=== PATIENT | female | born 1935 | race Caucasian/White ===

== ENCOUNTER 2017-12-30 11:18 | Emergency (ER) | payer MEDICARE ==
--- NOTE | 2017-12-30 12:28 | RAD ---
HISTORY: dizzy, fell, headache COMPARISONS: None TECHNIQUE: Multiple contiguous axial CT scans were obtained of the head without intravenous contrast. FINDINGS: HEMORRHAGE/INFARCT: There is no hemorrhage or acute infarct. MASSES/SHIFT: There is no mass or shift. EXTRA-AXIAL SPACES: There are no extra-axial fluid collections. There is a rounded high attenuation lesion of the sella and suprasellar cistern measuring 0.9 cm in diameter centered to the right of midline SULCI AND VENTRICLES: The sulci and ventricles are normal in size and position for the patient's stated age. CEREBRUM: There are no focal parenchymal abnormalities. BRAINSTEM: There are no focal parenchymal abnormalities. CEREBELLUM: There are no focal parenchymal abnormalities. VESSELS: The vessels are grossly normal. PARANASAL SINUSES: The paranasal sinuses are clear. ORBITS: The orbits are unremarkable. BONES AND SOFT TISSUE: No bone or soft tissue abnormalities are noted. OTHER: None IMPRESSION: 1. 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 THE DIFFERENTIAL INCLUDES MACROADENOMA VERSUS SELLA MENINGIOMA. CONSIDER FURTHER EVALUATION WITH CONTRAST-ENHANCED PITUITARY PROTOCOL MRI OF THE BRAIN IN THE NONACUTE SETTING. 2. NO ACUTE INTRACRANIAL PATHOLOGY.
--- NOTE | 2017-12-30 12:33 | ED ---
Dizziness - HPI Summary HPI Summary: Pt is an 82 y/o female who presents to the ED c/o dizziness and head pain s/p fall. As per son Quinn, she got up to go to the bathroom 2 nights ago, 12/29/17 and 12:00 AM, and fell against her closet due to dizziness. Since then, she has been c/o dizziness, diaphoresis, mild nausea, dehydration, and tailbone and head pain. Pain is rated as an 9/10 in severity. She denies any neck pain, CP, or headache. Pt is not on blood thinners. She also states she has had throat pain for a while, and has seen the ENT for this symptom. Home Medications Medication Instructions Recorded Confirmed Type Atorvastatin* [Lipitor 10 MG*] 10 mg PO 1700 09/14/13 11/21/17 History Omeprazole CAP* [Prilosec CAP* 20 20 mg PO DAILY 09/14/13 11/21/17 History MG] Ascorbic Acid TAB* [Vitamin C 500 mg PO DAILY 11/21/17 History TAB*] Cholecalciferol TAB* [Vitamin D 2,000 units PO DAILY 11/21/17 History TAB*] Cranberry PO DAILY 11/21/17 History Fluticasone Propionate [Flovent 2 nasal.spr BOTH NARES DAILY 11/21/17 History Diskus] Levothyroxine Sodium 50 mcg PO DAILY 11/21/17 History - History Of Current Complaint Chief Complaint: EDDizziness Stated Complaint: DIZZY/SWEATING Time Seen by Provider: 12/30/17 11:30 Hx Obtained From: Patient, Family/Mid Level Project Manager - Son Onset/Duration: Suddenly Timing: Constant Character: Dizzy Aggravating Factor(s): Other - Fall 2 days ago Alleviating Factor(s): Nothing Associated Signs And Symptoms: Positive: Nausea, Diaphoresis. Negative: Chest Pain, SOB - Allergies/Home Medications Allergies/Adverse Reactions: Allergies Allergy/AdvReac Type Severity Reaction Status Date / Time doxycycline Allergy Unknown Verified 11/21/17 11:58 Reaction Details Penicillins Allergy Unknown Verified 11/21/17 11:58 Reaction Details Sulfa (Sulfonamide Allergy Unknown Verified 11/21/17 11:58 Antibiotics) Reaction Details Home Medications: Home Medications Levothyroxine Sodium 50 mg PO DAILY 12/30/17 [History Confirmed 12/30/17] PMH/Surg Hx/FS Hx/Imm Hx Endocrine/Hematology History: Denies: Hx Diabetes, Hx Thyroid Disease Cardiovascular History: Denies: Hx Hypertension Respiratory History: Denies: Hx Asthma, Hx Chronic Obstructive Pulmonary Disease (COPD) GI History: Denies: Hx Ulcer - Cancer History Hx Chemotherapy: No Hx Radiation Therapy: No - Surgical History Surgery Procedure, Year, and Place: 1970, Hysterectomy, partial thyroidectomy Infectious Disease History: No Infectious Disease History: Denies: Hx Clostridium Difficile, Hx Hepatitis, Hx Human Immunodeficiency Virus (HIV), Hx of Known/Suspected MRSA, Hx Shingles, Hx Tuberculosis, Hx Known/ Suspected VRE, Hx Known/Suspected VRSA, History Other Infectious Disease, Traveled Outside the [place] in Last 30 Days - Family History Known Family History: Positive: Cardiac Disease, Diabetes - Mother, Other - Adrenal gland tumor (son), cancer (father), brain aneurysm (sister) - Social History Alcohol Use: Rare Hx Substance Use: No Substance Use Type: Reports: None Hx Tobacco Use: Yes Smoking Status (MU): Former Smoker Review of Systems Positive: Skin Diaphoresis, Other - Dehydrated Negative: Chest Pain Positive: Nausea Positive: Myalgia - Tailbone, back of head Neurological: Other - Dizziness, NEGATIVE: neck pain Negative: Headache All Other Systems Reviewed And Are Negative: Yes Physical Exam - Summary Physical Exam Summary: Appearance: Well-appearing, moderate pain distress, well-nourished Skin: Warm, color reflects adequate perfusion, dry Head: Normal Head/Face inspection, atraumatic Eyes: Conjunctiva clear ENT: Normal inspection Neck: Supple, no nodes, no JVD, discomfort right anterior aspect of neck Respiratory: Lungs clear, normal breath sounds, no respiratory distress Cardio: RRR, No murmur, pulses normal, brisk capillary refill Abdomen: Soft, nontender Bowel sounds: Present Musculoskeletal: Strength Intact/ROM intact, no calf tenderness, no edema, sacrum and coccyx tender on palpation Psychological: Normal Neuro: A&O x3, CN II-XII intact, motor function 5/5, sensation intact, cerebellar normal GCS: 15 Rectal: ext js developer in room, normal Triage Information Reviewed: Yes Vital Signs On Initial Exam: Initial Vitals Temp Pulse Resp BP Pulse Ox 99 F 73 16 138/72 98 12/30/17 11:20 12/30/17 11:20 12/30/17 11:20 12/30/17 11:20 12/30/17 11:20 Vital Signs Reviewed: Yes Diagnostics - Vital Signs Vital Signs Temp Pulse Resp BP Pulse Ox 12/30/17 11:20 99 F 73 16 138/72 98 - Laboratory Result Diagrams: 12/30/17 13:16 12/30/17 13:16 Lab Statement: Any lab studies that have been ordered have been reviewed, and results considered in the medical decision making process. - Radiology CXR Xray Interpretation: No Acute Changes - NO ACTIVE CARDIOPULMONARY DISEASE. ED physician reviewed radiology report. Radiology Interpretation Completed By: Radiologist Sacrum and Coccyx XR Xray Interpretation: Positive (See Comments) - 1. LIMITED STUDY. 2. NO ACUTE OSSEOUS INJURY OF THE SACRUM AND COCCYX. PLAIN FILMS ARE RELATIVELY INSENSITIVE TO NONDISPLACED FRACTURES OF THE SACRUM AND COCCYX. IF THERE IS PERSISTENT CLINICAL CONCERN FOR SACROCOCCYGEAL OSSEOUS PATHOLOGY, BONE SCANNING MAY BE MORE SENSITIVE. ED physician reviewed radiology report. Radiology Interpretation Completed By: Radiologist - CT Brain CT CT Interpretation: Positive (See Comments) - 1. 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 THE DIFFERENTIAL INCLUDES MACROADENOMA VERSUS SELLA MENINGIOMA. CONSIDER FURTHER EVALUATION WITH CONTRAST-ENHANCED PITUITARY PROTOCOL MRI OF THE BRAIN IN THE NONACUTE SETTING. 2. NO ACUTE INTRACRANIAL PATHOLOGY. ED physician reviewed radiology report. CT Interpretation Completed By: Radiologist - EKG 11:27 Cardiac Rate: NL - 71 bpm EKG Rhythm: Sinus Rhythm ST Segment: Non-Specific Ectopy: PVCs EKG Interpretation: An EKG at 11:27 reveals nml AV/IV CT, nml QTc, and LAD (-44) Re-Evaluation - Re-Evaluation First Eval Re-Evaluation Time: 14:00 Change: Worse Comment: Pt now c/o headache. Second Eval Re-Evaluation Time: 15:39 Change: Improved Comment: Pt wants to go home. Third Eval Re-Evaluation Time: 15:50 Change: Improved Comment: Discussed discharge with patient. Pt still dizzy but improved. BP 192/ 86. Dizzy Course/Dx - Course Course Of Treatment: At 13:30 Dr. Giron said to consult with neurosurgery about the sellar and suprasellar mass. At 13:[address] Melo, pt does not need admission for incidental finding alone. At 15:38 Phu Aguilar, RENEWALS REPRESENTATIVE came to ED. He states pt can be discharged, and she wants to go home because she no longer feels dizzy. She has known about the suprasellar tumor since 1991 , but has not had follow-up. The RENEWALS REPRESENTATIVE talked to Dr. Olmstead.Son called Dr. Shepherd at 15:42. Starting Meclizine for dizziness and Norvasc 5 mg for HTN. A CXR was negative. A sacrum and coccyx XR revealed LIMITED STUDY, NO ACUTE OSSEOUS INJURY OF THE SACRUM AND COCCYX. PLAIN FILMS ARE RELATIVELY INSENSITIVE TO NONDISPLACED FRACTURES OF THE SACRUM AND COCCYX. IF THERE IS PERSISTENT CLINICAL CONCERN FOR SACROCOCCYGEAL OSSEOUS PATHOLOGY, BONE SCANNING MAY BE MORE SENSITIVE. A brain CT revealed 0.9 CM SELLAR AND SUPRASELLAR MASS THE DIFFERENTIAL INCLUDES MACROADENOMA VERSUS SELLA MENINGIOMA. CONSIDER FURTHER EVALUATION WITH CONTRAST-ENHANCED PITUITARY PROTOCOL MRI OF THE BRAIN IN THE NONACUTE SETTING, NO ACUTE INTRACRANIAL PATHOLOGY. An EKG revealed a rate of 71 bpm, non-specific ST, PVCs, nml AV/IV CT, nml QTc, and LAD (-44). - Diagnoses Provider Diagnoses: Dizziness, Head injury, Coccydynia, Suprasellar mass, Granular cell tumor of sellar region, Elevated BP without diagnosis of hypertension - Provider Notifications Discussed Care Of Patient With: Crystal Giron Time Discussed With Above Provider: 13:30 Instructed by Provider To: Other - Consult with neurosurgery about the sellar and suprasellar mass. At 13:[address] Melo, pt does not need admission for incidental finding alone. At 15:38 Phu Aguilar RENEWALS REPRESENTATIVE came to ED. He states pt can be discharged, and she wants to go home because she no longer feels dizzy. She has known about the suprasellar tumor since 1991, but has not had follow-up. The RENEWALS REPRESENTATIVE talked to Dr. Olmstead. Discharge - Sign-Out/Discharge Documenting (check all that apply): Patient Departure - Discharged - Discharge Plan Condition: Stable Disposition: HOME Prescriptions: amLODIPine TAB* [Norvasc 5 mg TAB*] 5 mg PO DAILY #30 tab Meclizine TAB* [Antivert 12.5 TAB*] 25 mg PO TID PRN #30 tab PRN Reason: Dizziness Patient Education Materials: Coccyx Injury (ED), Head Injury (ED), Hypertension (ED), Lightheadedness (ED), Dizziness (ED) Referrals: Marly Arellano MD [Primary Care Provider] - 1 Day Additional Instructions: We have given you a copy of your CT brain report. You will need further evaluation of hari mass. Your blood pressure is very elevated. We have started treatment with amlodipine 5mg for this. You were given your first dose in the ER. We gave you your first dose of meclizine 25mg in the ER with some improvement. You did not fracture your coccyx based on the plain xray. Return to the ER if you have new or worsening symptoms. - Attestation Statements Document Initiated by Scribe: Yes Documenting Scribe: Tatyana Pérez Provider For Whom Scribe is Documenting (Include Credential): Alexandra Pedersen MD Scribe Attestation: Tatyana Goodwin, scribed for Alexandra Pedersen MD on 12/30/17 at 1907.
[2017-12-30] MEDS ORDERED: Acetaminophen TAB* 325 MG PO ONE (12:40)
[2017-12-30] MEDS ORDERED: NS 0.9% 1000 ML* 2,000 ML IV ONE (12:41)
[2017-12-30] MEDS ORDERED: Ondansetron INJ* 2 MG/ML VIAL IV ONE (12:43)
--- NOTE | 2017-12-30 12:45 | RAD ---
HISTORY: dizzy, fell COMPARISONS: August 18, 2017 VIEWS: 3: frontal dual-energy view of the chest FINDINGS: CARDIOMEDIASTINAL SILHOUETTE: The cardiomediastinal silhouette is normal. SHANTELLE: The shantelle are normal. PLEURA: The costophrenic angles are sharp. No pleural abnormalities are noted. LUNG PARENCHYMA: The lungs are clear. ABDOMEN: The upper abdomen is clear. There is no subphrenic gas. BONES AND SOFT TISSUES: No bone or soft tissue abnormalities are noted. OTHER: None. IMPRESSION: NO ACTIVE CARDIOPULMONARY DISEASE.
--- NOTE | 2017-12-30 12:47 | RAD ---
HISTORY: fell, pain COMPARISONS: None VIEWS: 3 , frontal, outlet, lateral views of the sacrum and coccyx. The tip of the coccyx is obscured by a lead shield on the lateral view. Evaluation is also limited by positioning. FINDINGS: BONE DENSITY: There is diffuse osteopenia. BONES: There is no displaced fracture. The sacral arches are intact. 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 ALIGNMENT: There is no dislocation. SOFT TISSUES: Unremarkable. OTHER FINDINGS: None. IMPRESSION: 1. LIMITED STUDY. 2. NO ACUTE OSSEOUS INJURY OF THE SACRUM AND COCCYX. PLAIN FILMS ARE RELATIVELY INSENSITIVE TO NONDISPLACED FRACTURES OF THE SACRUM AND COCCYX. IF THERE IS PERSISTENT CLINICAL CONCERN FOR SACROCOCCYGEAL OSSEOUS PATHOLOGY, BONE SCANNING MAY BE MORE SENSITIVE
[2017-12-30] MEDS ORDERED: Ondansetron INJ* 2 MG/ML VIAL ONE (12:55)
[2017-12-30 13:21] LABS: Urine Appearance Clear; Urine Blood Negative (Negative); Urine Color Straw; Urine Ketones Negative (Negative); Urine Protein Negative (Negative); Urine Red Blood Cell Absent (Absent); Urine Specific Gravity 1.006 (1.010-1.030); Urine Urobilinogen Negative (Negative); Urine White Blood Cell Trace(0-5/hpf) (Absent)
[2017-12-30 13:23] LABS: ABS Basophils 0.1 10^3/ul (0-0.2); ABS Eosinophils 0.2 10^3/ul (0-0.6); ABS Monocytes 0.6 10^3/ul (0-0.8); ABS Neutrophils 4.7 10^3/ul (1.5-7.7); ABS Nucleated RBC 0 10^3/ul; Eosinophil % 2.8 % (0-6); Hematocrit 39 % (35-47); Hemoglobin 12.7 g/dl (12.0-16.0); Lymphocyte % 26.3 % (25-47); Mean Corpuscular HGB Conc 33 g/dl (31-36); Mean Corpuscular Hemoglobin 29 pg (27-31); Mean Corpuscular Volume 87 fL (80-97); Mean Platelet Volume 9.8 um3 (7.4-10.4); Nucleated Red Blood Cells % 0.1; Platelet Count 183 10^3/ul (150-450); Red Blood Count 4.46 10^6/ul (4.00-5.40); Red Cell Distribution Width 13 % (10.5-15); White Blood Count 7.7 10^3/ul (3.5-10.8)
[2017-12-30 13:33] LABS: INR 0.91 (0.77-1.02)
[2017-12-30 13:47] LABS: EGFR Non-African American 85.7 (>60)
[2017-12-30] MEDS ORDERED: traMADol TAB* 50 MG PO ONE (14:01)
[2017-12-30] MEDS ORDERED: Meclizine TAB* 12.5 MG PO ONE (14:32)
[2017-12-30 16:03] VITALS: BP 174/84
--- NOTE | 2017-12-30 21:59 | CONS ---
CC: Dr. Aguilar; Dr. Alexandra Pedersen * CONSULTATION REPORT: DATE OF CONSULT: 12/30/17 REQUESTING PHYSICIAN IN CONSULT: Dr. Alexandra Pedersen (report dictated by Ivone Aguilar NP). REASON FOR MEDICAL CONSULTATION: Evaluation for possible admission. HISTORY OF PRESENT ILLNESS: Ms. Goldstein is an 82-year-old female patient that last night around 12:30 in the morning, she was getting up to use the bathroom and she had her feet over the side of the bed, she felt a little lightheaded, but she knows to take her time before she gets up, especially when she has been sleeping for a period of time. She got up; when she stood up she started feeling dizzy and lightheaded. She did state that she has not drank a lot of water yesterday. It was notably hot yesterday. She said she does drink a lot. She drinks coffee, in addition to this also does drink tea. She was starting to get dizzy. She thought that she was going to fall. She tried to catch herself and brace herself on her pillows on the bed. Unfortunately she missed them and she fell and landed on her sacrum and hit the back of her head. She denied any chest pain. She denied feeling like a spinning sensation. She denied having any trouble with her gait. She denied feeling any shortness of breath. She says that she did not feel any weakness to 1 leg or 1 arm. There was not any facial drooping. She denied having any abdominal pain. There have been no recent URI symptoms. There have been again no reports of chest pain. No reports of shortness of breath. She denied any recent rhinorrhea. No sore throat. She denied feeling congested. She denied any recent changes in her medications. She was concerned though because of the dizziness and decided to come into the ED. She denied any visual changes. No slurring of her speech. Again, no weakness to 1 side or facial drooping was reported. She came into the ED. She was complaining of dizziness while she got here, but she says that after she received some fluids, she started feeling better. She was concerned because of the dizziness that she had last night, she decided to come into the ED. She was evaluated. On CT evaluation, it was noted that she had a mass near the suprasellar and sellar area of the brain and because of this, we were asked to evaluate her in consult. PAST MEDICAL HISTORY: Significant for: 1. IBS. 2. GERD. 3. Hyperlipidemia. 4. Hypothyroidism. 5. History of pituitary tumor. She says she has known about this since 1991. PAST SURGICAL HISTORY: She has had a hysterectomy. MEDICATIONS: Home medications include: 1. Omeprazole 20 mg p.o. daily. 2. Cranberry 1 capsule p.o. daily. 3. Vitamin D 2000 units p.o. daily. 4. Lipitor 10 mg daily. 5. Vitamin C 500 mg p.o. daily. 6. Levothyroxine 50 mcg p.o. daily. 7. Meclizine 25 mg p.o. t.i.d. as needed. ALLERGIES TO MEDICATIONS: Include DOXYCYCLINE, PENICILLIN, and SULFA. FAMILY HISTORY: Mother had a history of diabetes. Father had a history of prostate cancer. SOCIAL HISTORY: She is a former smoker. She does not drink alcohol. She lives alone. She does drink coffee and tea daily. REVIEW OF SYSTEMS: There is no documented fever. She denies having any significant weight change. There was no double vision. She denies having any ear discharge. There was no rhinorrhea. No sore throat. No thyroid enlargement. She denied having any chest pain. There was no orthopnea. No nocturnal dyspnea. No abdominal pain. No nausea. No vomiting. No dysuria. No frequency. No seizure. No loss of consciousness. No pruritus and no skin ulcerations. Review of 14 systems completed, all others negative. PHYSICAL EXAM: Vital Signs: Last blood pressure was 174/69, pulse 66, respirations 16, O2 sat 98%, and temperature 99. General: At this time, Ms. Goldstein is an 82-year-old female patient. She appears to be well nourished and well developed. She does not appear to be in any acute distress. HEENT: Head atraumatic and normocephalic. Eyes: EOMs are intact. Sclerae anicteric and not pale. Throat: Oral mucosa appears to be moist. No oropharyngeal erythema. Neck was supple. Heart: Sounds S1 and S2. She had a regular rate and rhythm. There were no murmurs, rubs, or gallops. Lungs were clear to auscultation bilaterally. No wheezes, rales, or rhonchi. Abdomen was soft, flat , and nontender. Bowel sounds were present. Extremities: Pulses were 2+ throughout. She is able to move all 4 extremities with 5/5 strength. Neurologically, the patient is awake. She is alert. She is oriented x3. Cranial nerves II through XII were intact. Finger-to- nose, [id number]-[id number] intact bilaterally. She had 5/5 strength in the lower extremities and 5/5 strength in the upper extremities. She had no nystagmus. On exam, her gait was steady. She was able to do heel-to-toe touch gait with no unsteadiness. No gross focal deficits. Again, speech is clear. No facial drooping. Her skin was grossly intact. DIAGNOSTIC STUDIES/LAB DATA: WBC of 7.7, RBC of 4.46, hemoglobin of 12.7, hematocrit of 39, platelet count of 183,000. The INR was 0.91, PTT of 31.7. D - dimer less than 200. Sodium was 141, potassium of 4.2, chloride of 105, bicarb 30, BUN 16, creatinine of 0.66, glucose of 100, lactic 0.6, calcium 9.1, mag 2.1, total bili 0.3. AST 12, ALT 11. Alk phos 50. CK 53. Troponin 0.00. CRP is pending. BNP of 47, albumin of 4.2, TSH of 1.87. Urine showed a low specific gravity, 2+ leukocyte esterase. Toxicology was negative for alcohol. She had an EKG obtained today, which showed and I do not have a previous for comparison, a normal sinus rhythm, with a left axis deviation. She had a PVC. No ST elevation or T-wave inversions were noted at this point. She had a sacrum coccyx x-ray, showing impression: Limited study. No acute osseous injury of the sacrum and coccyx. Plain films are relatively insensitive to non-displaced fracture of the sacrum and coccyx. If the symptoms persist, and clinical concern for sacral coccyx osseous pathology, bone scanning may be more sensitive. She had a chest x-ray obtained today, which revealed no active cardiopulmonary disease. There was a brain CT obtained today, which revealed 0.9 cm sellar and suprasellar mass. Differential includes macroadenoma versus sellar meningioma. Consider further evaluation with contrast enhanced pituitary protocol MRI of the brain in nonacute setting. No acute intracranial pathology. Old medical records were reviewed. ASSESSMENT AND PLAN: Ms. Goldstein is an 82-year-old female patient coming into ER today with complaints of lightheadedness, which is now resolved after IV fluids and meclizine. We were asked to evaluate for admission. Recommendations at this point are: 1. Dizziness. I suspect that she may have been orthostatic yesterday, again a very hot day. She said she did not drink a lot of fluids. When she stood up in the middle of night, she had to go urinate, she felt dizzy. She did not faint, did not pass out. Neuro exam was benign. I do not believe that the tumor on the CT scan is contributing to her symptoms. Her symptoms are resolved , her neuro exam is benign, so I think she can be discharged to home with p.r.n. meclizine. She responded here and she is wanting to go home with close followup with her primary. 2. Hypertension. Her blood pressure done here was 179/60. I did recommend starting her on a low-dose Norvasc and follow with her PCP with this. She was as high as 185/100 down here in the ED. She is not having any chest pain, shortness of breath, and not having any signs of end-organ dysfunction, not having any blurry vision or headache, so I think Norvasc, close followup with her PCP. I did discuss this with my attending and Dr. Pedersen, they are in agreement. 3. Pituitary tumor. She needs close followup with her PCP and repeat MRI imaging. She says she has not had this followed up since the early s. This needs to be followed up more frequently. 4. Irritable bowel syndrome. Follow up with PCP. 5. Gastroesophageal reflux disease. Continue PPI therapy. 6. Hyperlipidemia. Continue statin therapy. 7. Hypothyroidism. Continue her Synthroid. 8. Disposition. She can be discharged home with followup closely with her PCP. Continue blood pressure meds. She is to return to the hospital for dizziness, blurry vision, weakness, any stroke-like symptoms which I did describe to her in detail, chest pain, shortness of breath, fevers, chills, or any worsening symptoms. TIME SPENT: On consult 60 minutes, greater than half the time spent face-to- face with the patient obtaining my history and physical and the other half the time spent going over the plan of care with the patient and implementing the plan of care. I did discuss the plan of care with my attending, Dr. Giron; she is in agreement. IVONE AGUILAR, SAUSAGE SMOKER [id number]/CPS #: [id number] GISELA
== END 2017-12-30 16:02 | disposition home or self-care (01) ==
LOC: ED 11:18
DX: R42 Dizziness and giddiness (principal); S09.90XA Unspecified injury of head, initial encounter; M53.3 Sacrococcygeal disorders, not elsewhere classified; D35.2 Benign neoplasm of pituitary gland; W19.XXXA Unspecified fall, initial encounter; Y92.9 Unspecified place or not applicable; Z87.891 Personal history of nicotine dependence; R03.0 Elevated blood-pressure reading, without diagnosis of hypertension; E78.5 Hyperlipidemia, unspecified; Z87.19 Personal history of other diseases of the digestive system
CPT/HCPCS: 36415; 70450; 71045; 72220; 80053; 80320; 81003; 81015; 82550; 83605; 83735; 83880; 84443; 84484; 85025; 85379; 85610; 85652; 85730; 86140; 87086; 93005; 96374; 96375; 99283; A9270-GY; G0480; J2405

== ENCOUNTER 2019-01-29 16:03 | Emergency (ER) | payer MEDICARE ==
--- OUTSIDE RECORDS SUMMARY | 2019-01-29 16:19 | XMS REPORT | Continuity of Care Document ---
:1935 External Reference #:[id number] Author Name Marly Aguilar MD Address [address] [place] [address] Care Team Providers Name Role Phone Troy Black MD - Otolaryngology Care Team Information Race Relations Professor [phone] Problems Active Problems Provider Date Peptic reflux disease Marly Aguilar MD Onset: 09/05/2010 Gastro-esophageal reflux disease with Marly Aguilar MD Onset: 05/22/2015 esophagitis Mixed hyperlipidemia Marly Aguilar MD Onset: 03/31/2017 Gastro-esophageal reflux disease with Marly Aguilar MD Onset: 08/29/2017 esophagitis Hypothyroidism Marly Aguilar MD Onset: 08/29/2017 Essential hypertension Marly Aguilar MD Onset: 04/24/2018 Social History Type Date Description Comments Sex Unknown Tobacco Use Start: Unknown End: Unknown Former Cigarette Smoker Cigarette Use Pack Years - 01 ETOH Use Rarely consumes alcohol Tobacco Use Start: Unknown End: Unknown Patient is a former smoker Smoking Status Reviewed: 01/01/19 Patient is a former smoker Allergies, Adverse Reactions, Alerts Active Allergies Reaction Severity Comments Date Penicillin 08/19/2006 Sulfa 08/19/2006 Doxycycline RED RAISED AREAS ON CHEST 06/13/2016 Medications Active Medications SIG Qnty Indications Ordering Date Provider Omeprazole 1 by mouth every 90caps K21.0 Marly Aguilar 01/01/2019 40mg day MD Jaqueline Capsules Clotrimazole/Betameth apply twice a day 15gm L29.0 Marly Aguilar 2018 asone Dipropionate as needed MD Jaqueline 1-0.05% Cream Meclizine HCL take 1 - 2 30tabs Jeff Marly 03/27/2018 12.5mg tablets by mouth MD Jaqueline Tablets three times a day as needed for dizziness Amlodipine Besylate Take One [facility] 01/23[facility]2018 5mg Tablet By Mouth MD Jaqueline Tablets Every Day Fluticasone 2 sprays in each 16units R09.82 [facility] 03/31/2017 Propionate nostril daily MD Jaqueline 50mcg/Act Suspension Rosuvastatin Calcium Take One Tablet 30tabs E78.2 [facility] 2015 By Mouth Every MD Jaqueline 10mg Tablets Day Vitamin D 2 by mouth every E55.9 [facility] 10/10/2014 2000Unit day MD Jaqueline Capsules Levothyroxine Sodium 1 by mouth every E03.9 Unknown day 50mcg Tablets Immunizations CPT Code Status Date Vaccine Lot # [id number] Given 01/23/2018 Influenza Vac, Quadrivalent, Split, 0.5mL Dosage, [id number] Im Use 39956 Given 01/26/2017 Fluzone Highdose Age 65 And Over Preservative & Antibiotic Free 05464 Given 01/30/2016 Influenza Vac, Quadrivalent, Split, 0.5mL Dosage, [id number] Im Use 07257 Given 09/19/2015 Prevnar 13 Pneumococal Conjugate Vaccine [id number] 73013 Given 05/22/2015 Influenza Vac, Quadrivalent, Split, 0.5mL Dosage, [id number] Im Use Q2038 Given 01/24/2014 Fluzone Trivalent Immunization [id number] Q2038 Given 02/08/2013 Fluzone Trivalent Immunization [id number] Q2038 Given 02/27/2012 Fluzone Trivalent Immunization [id number] Q2038 Given 02/22/2011 Fluzone Trivalent Immunization Q2038 Given 02/22/2011 Fluzone Trivalent Immunization [id number] 95069 Given 01/17/2010 Afluria Or Fluvirin Flu Vac Intramuscular 34480 Given 01/17/2010 Afluria Or Fluvirin Flu Vac Intramuscular [id number] 47539 Given 05/10/2009 Pneumococcal 23 Immunization Adult Or [id number] Immunosuppressed Patient 66224 Given 05/10/2009 Tdap (Adacel) Ages 7 And Above Only [id number] 11613 Given 01/19/2009 Afluria Or Fluvirin Flu Vac Intramuscular [id number] 95155 Given 03/18/2008 Afluria Or Fluvirin Flu Vac Intramuscular [id number] Vital Signs Date Vital Result Comment 01/01/2019 1:29pm Weight 191.00 lb Heart Rate 76 /min BP Systolic 126 mmHg BP Diastolic 56 mmHg Height 67.5 inches 5'7.50" BMI (Body Mass Index) 29.5 kg/m2 08/03/2018 2:11pm Weight 191.00 lb Heart Rate 88 /min BP Systolic 120 mmHg BP Diastolic 64 mmHg Height 67.5 inches 5'7.50" BMI (Body Mass Index) 29.5 kg/m2 Results Test Date Facility Test Result H/L Range Note Laboratory test finding 01/01/2019 [facility] Vit D 25Oh <pending> TSH <pending> Basic (BMP) 08/03/2018 [facility] Sodium 143 mmol/L 135-146 1, 2 Potassium 4.4 mmol/L 3.5-5.2 Chloride# 104 mmol/L 97-110 3 Carbon Dioxide 32 mmol/L 24-34 Glucose 119 mg/dL High 70-105 BUN 15 mg/dL 6-26 Creatinine 0.6 mg/dL 0.5-1.4 Calcium 9.6 mg/dL 8.5-10.2 Non Renée Egfr >60 >60 4 Renée Egfr >60 >60 5 Anion Gap 7 mmol/L 5-15 6 Lipid Treatment 08/03/2018 [facility] Cholesterol 136 mg/dL 50-199 Triglycerides 190 mg/dL 30-200 HDL 53 mg/dL 35-85 7 Chol/ HDL Ratio 2.6 ratio Low 3.7-5.6 VLDL 38 mg/dL High 2-29 LDL (Calc) 45 mg/dL 20-99 8 Alt 13 U/L 3-42 Ast 14 U/L 8-42 Laboratory test finding 08/03/2018 [facility] TSH 2.22 uIU/mL 0.35-4.94 Vitamin D 25 Hydroxy 33 ng/mL 30-100 9 1 This sample is drawn by:[facility]. 2 Updated reference range on new analyzer 3 Updated reference range on new analyzer 4 Concerning GFR Guidelines: Normal function or mild renal disease, if clinically at risk: >/= 60 mL/min Moderately decreased: 30-59 Severely decreased: 15-29 Renal failure: <15 Glomerular Filtration Rate (GFR) is estimated based on the MDRD equation, which assumes a steady state for creatinine as recommended by the National Kidney Disease Education Program in conjunction with the National Institutes of Health and the National Kidney Foundation. Clinical conditions in which it may be necessary to measure GFR by using clearance methods include extremes of age and body size, severe malnutrition or obesity, diseases of skeletal muscle, paraplegia or quadriplegia, vegetarian diet, rapidly changing kidney function, and calculation of the dose of potentially toxic drugs that are excreted by the kidneys. 5 Concerning GFR Guidelines for Americans: Normal function or mild renal disease, if clinically at risk: >/= 60 mL/min Moderately decreased: 30-59 Severely decreased: 15-29 Renal failure: <15 6 Updated Reference Range -2017 7 Per NCEP ATP III Guidelines: Results lower than 40 mg/dL are suggestive of increased risk for coronary artery disease. Results > or = to 60 mg/dL are considered a negative risk factor. 8 Per NCEP ATP III Guidelines: Normal Population <130 Patients with medical conditions: CHD/DM Optimal: <100 Borderline high: 130-159 High: 160-189 Very high: >189 9 Clinical Guidelines for recommended serum 25(OH)Vitamin D Deficient at less than 20 ng/mL Insufficient at 20 to <30 ng/mL Sufficient at 30-100 ng/mL Toxicity at greater than 100 ng/mL Procedures Date Code Description Status 11/02/2018 [id number] Mammogram Completed 10/27/2017 [id number] Mammogram Completed 10/25/2016 [id number] Mammogram Completed 10/24/2015 [id number] Bone Mineral Density Test Completed 10/24/2015 [id number] Mammogram Completed 10/20/2014 [id number] Mammogram Completed 10/04/2013 [id number] Mammogram Completed 09/16/2013 [id number] Colonoscopy Completed 09/30/2012 [id number] Mammogram Completed 08/08/2011 [id number] Mammogram Completed 08/02/2010 [id number] Mammogram Completed 06/26/2009 [id number] Bone Mineral Density Test Completed 05/01/2009 [id number] Mammogram Completed Medical Devices Description No Information Available Encounters Type Date Location Provider Dx Diagnosis Office Visit 08/03/2018 Marly Medrano E78.2 Mixed hyperlipidemia 2:15p MD Jaqueline E03.9 Hypothyroidism, unspecified I10 Essential (primary) hypertension K21.0 Gastro-esophageal reflux disease with esophagitis R07.0 Pain in throat E55.9 Vitamin D deficiency, unspecified Z68.29 Body mass index (BMI) 29.0-29.9, adult Assessments Date Code Description Provider 01/01/2019 Z00.01 Encounter for general adult medical Marly Aguilar MD examination with abnormal findings 01/01/2019 E78.2 Mixed hyperlipidemia Marly Aguilar MD 01/01/2019 E03.9 Hypothyroidism, unspecified Marly Aguilar MD 01/01/2019 E55.9 Vitamin D deficiency, unspecified Marly Aguilar MD 01/01/2019 I10 Essential (primary) hypertension Marly Aguilar MD 01/01/2019 K21.0 Gastro-esophageal reflux disease with Marly Aguilar MD esophagitis 01/01/2019 R07.0 Pain in throat Marly Aguilar MD 01/01/2019 Z13.31 Encounter for screening for depression Marly Aguilar MD 01/01/2019 E04.2 Nontoxic multinodular goiter Marly Aguilar MD 01/01/2019 R09.89 Other specified symptoms and signs involving Marly Aguilar MD the circulatory and respiratory systems 01/01/2019 L29.0 Pruritus ani Marly Aguilar MD 01/01/2019 Z68.29 Body mass index (BMI) 29.0-29.9, adult Marly Aguilar MD 08/03/2018 E78.2 Mixed hyperlipidemia Marly Aguilar MD 08/03/2018 E55.9 Vitamin D deficiency, unspecified [facility] 08/03/2018 E03.9 Hypothyroidism, unspecified Marly Aguilar MD 08/03/2018 I10 Essential (primary) hypertension Marly Aguilar MD 08/03/2018 K21.0 Gastro-esophageal reflux disease with Marly Aguilar MD esophagitis 08/03/2018 R07.0 Pain in throat Marly Aguilar MD 08/03/2018 E55.9 Vitamin D deficiency, unspecified Marly Aguilar MD 08/03/2018 Z68.29 Body mass index (BMI) 29.0-29.9, adult Marly Aguilar MD 08/03/2018 E03.9 [facility], [facility] of Treatment 01/01/2019 - Marly Aguilar MDZ00.01 Encounter for general adult medical examination with abnormal ejrwgrzqX40.2 Mixed udvinqldyetpgeX40.9 Hypothyroidism , nfssamzpywqM21.9 Vitamin D deficiency, qmrtdzvzvfvG16 Essential (primary) rpbmgrosrmseH78.0 Gastro-esophageal reflux disease with esophagitisNew Medication:Omeprazole 40 mg - 1 by mouth every dayNew Xrays:[id number] Esphogram, Scheduled: 01/18/19R07.0 Pain in ruldimE17.31 Encounter for screening for tphoxlkwevC69.2 Nontoxic multinodular tyogiqV29.89 Other specified symptoms and signs involving the circulatory and respiratory systemsNew Xrays:Carotid Doppler Duplex Scan-Complete Bilateral Study, Scheduled: 01/18/19L29.0 Pruritus aniNew Medication:Clotrimazole/Betamethasone Dipropionate 1-0.05 % - apply twice a day as oojmckM46.29 Body mass index (BMI) 29.0-29.9, adult Functional Status Description No Information Available Mental Status Description No Information Available Referrals Description No Information Available
--- OUTSIDE RECORDS SUMMARY | 2019-01-29 16:19 | XMS REPORT | Continuity of Care Document ---
:1935 External Reference #:[id number] Author Name Troy Black M.D. (transmitted by agent of provider Margareth Cox) Address [address] [place] [address] Care Team Providers Name Role Phone Marly Aguilar MD Care Team Information Patient Services Rep [phone] Problems Description No Information Available Social History Type Date Description Comments Sex Unknown Tobacco Use Start: Unknown End: Used To Smoke Cigarettes But Unknown Quit. ETOH Use Rarely consumes alcohol Recreational Drug Use Never Used Drugs Allergies, Adverse Reactions, Alerts Active Allergies Reaction Severity Comments Date sulfa 10/01/2012 Penicillin 10/01/2012 Medications Active Medications SIG Qnty Indications Ordering Provider Date Levothyroxine Sodium 1 by mouth 180tabs Troy Black, 03/19/2017 50mcg every day M.D. Tablets Omeprazole 1 po qd 30caps Unknown 20mg Capsules DR Rosuvastatin Calcium Unknown 10mg Tablets Amlodipine Besylate 1/2 by mouth Unknown 5mg every day Tablets History Medications Dexamethasone 1 by mouth every 10tabs Troy Black, 11/03/2018 - 2mg Tablets day M.D. 12/06/2018 Immunizations Description No Information Available Vital Signs Date Vital Result Comment 12/07/2018 1:11pm Weight 191.00 lb Height 67 inches 5'7" BMI (Body Mass Index) 29.9 kg/m2 BP Systolic 144 mmHg BP Diastolic 78 mmHg Heart Rate 75 /min O2 % BldC Oximetry 97 % Body Temperature 97.1 F Pain Level 5 11/03/2018 10:37am Weight 191.00 lb Height 67 inches 5'7" BMI (Body Mass Index) 29.9 kg/m2 BP Systolic 151 mmHg BP Diastolic 77 mmHg Heart Rate 67 /min O2 % BldC Oximetry 95 % Body Temperature 97.5 F Pain Level 1 Results Description No Information Available Procedures Date Code Description Status 11/03/2018 68347 Ultrasound Head/Neck Completed 11/03/2018 25065 Fiberoptic Laryngoscopy,Diag. Completed Medical Devices Description No Information Available Encounters Type Date Location Provider Dx Diagnosis Office Visit 11/03/2018 Main Office Troy Black M.D. E04.1 Nontoxic single 10:30a thyroid nodule K21.9 Gastro-esophageal reflux disease without esophagitis R07.0 Pain in throat Assessments Date Code Description Provider 11/03/2018 E04.1 Nontoxic single thyroid nodule Troy Black M.D. 11/03/2018 K21.9 Gastro-esophageal reflux disease without Troy Black M.D. esophagitis 11/03/2018 R07.0 Pain in throat Troy Black M.D. Plan of Treatment No Information Available Functional Status Description No Information Available Mental Status Description No Information Available Referrals Description No Information Available
[2019-01-29 16:36] VITALS: BP 160/77
[2019-01-29] MEDS ORDERED: Tetan/Diph/Pertus SYR(Tdap)* 0.5 ML SYR(BOOSTRIX) use SYR contains LATEX IM ONE (16:48)
--- NOTE | 2019-01-29 17:00 | UC ---
Laceration HPI - HPI Summary HPI Summary: 83-year-old female who sustained a laceration to her left hand thenar eminence from her own dog which is up-to-date on immunizations. She basically needs her tetanus immunization updated. - History Of Current Complaint Chief Complaint: UCBiteInjury Stated Complaint: DOG BITE ON LEFT HAND Time Seen by Provider: 01/29/19 16:49 Hx Obtained From: Patient Laceration Location: Hand - Left hand, thenar eminence. Mechanism Of Injury: Sharp Trauma Onset/Duration: Sudden Onset Severity: Mild Pain Intensity: 0 Aggravating Factors: Nothing - Allergies/Home Medications Allergies/Adverse Reactions: Allergies Allergy/AdvReac Type Severity Reaction Status Date / Time doxycycline Allergy Unknown Verified 01/29/19 16:36 Reaction Details Penicillins Allergy Unknown Verified 01/29/19 16:36 Reaction Details Sulfa (Sulfonamide Allergy Unknown Verified 01/29/19 16:36 Antibiotics) Reaction Details Home Medications: Home Medications Cyanocobalamin TAB* [Vitamin B12 TAB*] 500 mcg PO DAILY 01/29/19 [History Confirmed 01/29/19] PMH/Surg Hx/FS Hx/Imm Hx Previously Healthy: Yes Endocrine History: Thyroid Disease Cardiovascular History: Hypertension - Surgical History Surgical History: Yes Surgery Procedure, Year, and Place: 1970, Hysterectomy, partial thyroidectomy - Family History Known Family History: Positive: Cardiac Disease, Diabetes - Mother, Other - Adrenal gland tumor (son), cancer (father), brain aneurysm (sister) - Social History Occupation: Retired Alcohol Use: None Substance Use Type: None Smoking Status (MU): Former Smoker - Immunization History Most Recent Influenza Vaccination: [id number] Most Recent Tetanus Shot: 2009 Review of Systems All Other Systems Reviewed And Are Negative: Yes Skin: Positive: Other - Laceration left thenar eminence. Is Patient Immunocompromised?: No Physical Exam Triage Information Reviewed: Yes Appearance: Well-Appearing, No Pain Distress, Well-Nourished Vital Signs: Initial Vital Signs Temp 98.4 F 01/29/19 16:32 Pulse 69 01/29/19 16:32 Resp 16 01/29/19 16:32 BP 160/77 01/29/19 16:32 Pulse Ox 97 01/29/19 16:32 Vital Signs Reviewed: Yes Musculoskeletal: Positive: Strength Intact, ROM Intact, Other: - Good peripheral pulses neuro sensation capillary refill, good finger strength with flexion and extension against resistance. Full range of motion. Neurological Exam: Normal Psychological Exam: Normal Skin: Positive: Other - Patient has an approximately 2.0 cm dog bite to the left thenar eminence. Bleeding is controlled. Laceration Course/Dx - Course/Dx Course Of Treatment: The patient's tetanus immunization was updated. The wound was irrigated with copious amount of normal saline and a bulky dressing was applied. She is to watch for signs of infection which were reviewed with the patient. She is to follow-up with her primary care provider as needed for any signs of infection or any further concerns. The dog is her own dog and is up-to-date on all its immunizations. - Diagnosis Provider Diagnosis: Animal bite of hand Discharge ED - Sign-Out/Discharge Documenting (check all that apply): Patient Departure All imaging exams completed and their final reports reviewed: No Studies - Discharge Plan Condition: Good Disposition: HOME Patient Education Materials: Animal Bite (ED) Referrals: Marly Arellano MD [Primary Care Provider] - Additional Instructions: You were given a Tdap tetanus immunization which is good for 8-10 years. Change the dressing in 24 hours and then daily. Watch for signs of infection such as hot, red, tender, red streaks, pus drainage and follow-up with your primary care provider if you develop infection. - Billing Disposition and Condition Condition: GOOD Disposition: Home
== END 2019-01-29 17:21 | disposition home or self-care (01) ==
LOC: UCCORT 16:03
DX: S61.452A Open bite of left hand, initial encounter (principal); Z23 Encounter for immunization; Z88.1 Allergy status to other antibiotic agents; Z88.0 Allergy status to penicillin; Z88.2 Allergy status to sulfonamides; Z87.891 Personal history of nicotine dependence; I10 Essential (primary) hypertension; W54.0XXA Bitten by dog, initial encounter; Y92.9 Unspecified place or not applicable
CPT/HCPCS: 90471; 90715; 99213; G0463

== ENCOUNTER 2023-06-03 10:24 | Observation (INO) ==
[~2023-06-03 10:24] MED LIST: Naloxone 0.4 mg VIAL 0.4 mg/ml 1 ml VIAL IV PRN
[2023-06-03] MEDS ORDERED: Propofol 10 MG/ML 20 ML BTL ONE (10:42)
[2023-06-03] MEDS ORDERED: fentaNYL 100 mcg/2 ml 50 MCG/ML VIAL ONE ×3 (10:43→14:50)
[2023-06-03] MEDS ORDERED: Scopolamine 1 mg/72hr PATCH ONE (11:14)
[2023-06-03] MEDS ORDERED: Clindamycin 900 MG/50 **NS BAG 900 MG/50 ML BAG ONE (11:15)
[2023-06-03] MEDS ORDERED: HYDROmorphone 0.5 MG/0.5 ML SYRINGE ONE (13:09)
[2023-06-03] MEDS ORDERED: Ondansetron 4 mg VIAL 2 MG/ML 2 ml VIAL ONE ×2 (14:35→17:02)
[2023-06-03] MEDS: Ondansetron 4 mg VIAL 2 MG/ML 2 ml VIAL IV PRN (14:36)
[2023-06-03] MEDS ORDERED: Metoclopramide 5 MG/ML VIAL (10 mg) ONE (14:48)
[2023-06-03] MEDS: Metoclopramide 5 MG/ML VIAL (10 mg) IV PRN (14:49)
[2023-06-03] MEDS: fentaNYL 100 mcg/2 ml 50 MCG/ML VIAL IV PRN (14:52)
[2023-06-03] MEDS ORDERED: Prochlorperazine 5 mg/ml 2 ml VIAL (10 mg) ONE (18:35)
[2023-06-03] MEDS: Prochlorperazine 5 mg/ml 2 ml VIAL (10 mg) IV PRN (18:36)
[2023-06-03] MEDS ORDERED: Ondansetron 4 mg VIAL 2 MG/ML 2 ml VIAL IV PRN (19:43)
[2023-06-03] MEDS ORDERED: HYDROmorphone 1 MG/1 ML SYRINGE IV SLOW PU PRN (19:43)
[2023-06-03] MEDS ORDERED: Metoclopramide 5 MG/ML VIAL (10 mg) IV PRN (19:48)
[2023-06-03] MEDS ORDERED: HYDROmorphone 0.5 MG/0.5 ML SYRINGE IV SLOW PU PRN (21:29)
[2023-06-03] MEDS: Lactated Ringers 1000 ml BAG 1,000 ML IV SCH ×2 (22:04→22:20)
[2023-06-03] MEDS: Enoxaparin 40 MG/0.4 ML SYR SUBCUT SCH (22:05)
[2023-06-03] MEDS: Buffered Lidocaine 1% SYRIN 1 ml INTRADERM ONE (22:57)
[2023-06-03] MEDS: Scopolamine 1 mg/72hr PATCH TRANSDERM ONE (22:57)
[2023-06-03] MEDS: Gentamicin ADULT 310 MG in NS 0.9% 100 ml BAG 100 ML IVPB ONE (22:59)
[2023-06-04 05:11] VITALS: BP 141/72
== END 2023-06-04 10:12 | disposition home or self-care (01) ==
LOC: SSU 10:24 → OR 10:24 → SUATTDRO 21:21
PROVIDERS: ADMIT Surgery Surgical Critical Care; ATTEND Surgery Surgical Critical Care